=== PATIENT | female | born 1945 | race Caucasian/White ===

== ENCOUNTER 2022-04-01 09:45 | Outpatient (CLI) | payer MEDICARE, OTHER | END 2022-04-01 09:46 | disposition home or self-care (01) | LOC: CSHMAMMO 09:45 | PROVIDERS: ATTEND Internal Medicine | DX: Z12.31 Encounter for screening mammogram for malignant neoplasm of breast (principal) | CPT/HCPCS: 77063; 77067 ==

== ENCOUNTER 2022-04-23 10:45 | Outpatient (CLI) | payer MEDICARE, OTHER | END 2022-04-23 10:46 | disposition home or self-care (01) | LOC: CSHULT 10:45 | PROVIDERS: ATTEND Internal Medicine | DX: N28.1 Cyst of kidney, acquired (principal); K82.4 Cholesterolosis of gallbladder | CPT/HCPCS: 76700 ==

== ENCOUNTER 2023-02-17 07:50 | Outpatient (CLI) | payer MEDICARE | END 2023-02-17 07:51 | disposition home or self-care (01) | LOC: CSHMRI 07:50 | PROVIDERS: ATTEND Orthopaedic Surgery | DX: M23.303 Other meniscus derangements, unspecified medial meniscus, right knee (principal); S83.241A Other tear of medial meniscus, current injury, right knee, initial encounter; M25.461 Effusion, right knee ==

== ENCOUNTER 2024-06-08 13:54 | Outpatient (CLI) | payer MEDICARE | END 2024-06-08 13:55 | disposition home or self-care (01) | LOC: CSHMAMMO 13:54 | PROVIDERS: ATTEND Internal Medicine | DX: Z12.31 Encounter for screening mammogram for malignant neoplasm of breast (principal); M85.852 Other specified disorders of bone density and structure, left thigh; Z78.0 Asymptomatic menopausal state | CPT/HCPCS: 77063; 77067; 77080 ==